=== PATIENT | female | born 1995 | race Caucasian/White ===

== ENCOUNTER 2017-04-23 17:21 | Emergency (ER) | payer SELFPAY ==
[~2017-04-23] VITALS: Ht 160 cm; Wt 98.4 kg
[2017-04-23] MEDS ORDERED: OXYcodone/APAP 10/325MG TABLET ONE (18:17)
[2017-04-23] MEDS ORDERED: ONDANSETRON ODT 4 MG PO ONE ×2 (18:30→19:30)
[2017-04-23] MEDS ORDERED: HYDROmorphone 1 MG/ML, 1ML IM ONE (18:30)
[2017-04-23] MEDS ORDERED: OXYcodone/APAP 10/325MG TABLET PO ONE (18:30)
[2017-04-23] MEDS ORDERED: ONDANSETRON ODT 4 MG ONE ×2 (18:31→19:31)
[2017-04-23] MEDS ORDERED: HYDROmorphone 1 MG/ML, 1ML ONE (18:32)
[2017-04-23] MEDS ORDERED: PROMETHAZINE 25 MG/ML, 1ML ONE (21:08)
[2017-04-23 21:13] VITALS: BP 103/60
[2017-04-23] MEDS ORDERED: PROMETHAZINE 25 MG/ML, 1ML IM ONE (21:30)
== END 2017-04-23 21:39 | disposition home or self-care (01) ==
LOC: ED 21:33
DX: S82.62XA Displaced fracture of lateral malleolus of left fibula, initial encounter for closed fracture (principal); S82.432A Displaced oblique fracture of shaft of left fibula, initial encounter for closed fracture; X50.1XXA Overexertion from prolonged static or awkward postures, initial encounter; Y93.89 Activity, other specified; Y99.8 Other external cause status; Y92.009 Unspecified place in unspecified non-institutional (private) residence as the place of occurrence of the external cause
CPT/HCPCS: 29515; 96372; 99284; J1170; J2550; Q0162

== ENCOUNTER 2017-04-28 09:19 | Day surgery (SDC) | payer BC ==
[~2017-04-28] VITALS: Ht 160 cm; Wt 97.8 kg
[2017-04-28] MEDS ORDERED: FENTANYL PF 250 MCG/5ML ONE (09:56)
[2017-04-28] MEDS ORDERED: MIDAZOLAM 1 MG/ML, 2ML ONE (09:56)
[2017-04-28] MEDS ORDERED: PROPOFOL 10 MG/ML, 20ML ONE (09:57)
[2017-04-28] MEDS ORDERED: DEXAMETHASONE 4 MG/ML, 1ML ONE ×2 (09:58)
[2017-04-28] MEDS ORDERED: ONDANSETRON 2MG/ML, 2ML ONE (09:58)
[2017-04-28] MEDS ORDERED: SODIUM CHLORIDE 0.9% PF 10ML ONE (09:58)
[2017-04-28] MEDS ORDERED: CEFAZOLIN 1,000 MG ONE ×2 (09:58)
[2017-04-28] MEDS ORDERED: ROPIvacaine/PF 0.5%, 30 ML ONE ×2 (10:01)
[2017-04-28 10:02] VITALS: BP 129/83
[2017-04-28] MEDS ORDERED: OXYC5CAP2 PO (10:02)
[2017-04-28 10:25] LABS: HCG UR SG 1.023 (1.003-1.030)
[2017-04-28] MEDS ORDERED: LACTATED RINGERS 1,000 ML IV SCH (10:25)
[2017-04-28] MEDS ORDERED: HYDROmorphone 1 MG/ML, 1ML IV PRN (10:30)
[2017-04-28] MEDS ORDERED: morphine SULFATE 10 MG/ML, 1ML IV PRN (10:30)
[2017-04-28] MEDS ORDERED: OXYcodone 5 MG/5 ML ORAL.SOL UDC PO PRN (10:30)
[2017-04-28] MEDS ORDERED: PROMETHAZINE 25 MG/ML, 1ML IV PRN (10:30)
[2017-04-28] MEDS ORDERED: ACETAMINOPHEN 325 MG TABLET PO PRN (10:30)
[2017-04-28] MEDS ORDERED: FENTANYL PF 100 MCG/2ML IV PRN (10:30)
[2017-04-28] MEDS ORDERED: ONDANSETRON 2MG/ML, 2ML IVPush PRN (10:30)
[2017-04-28] MEDS ORDERED: PROMETHAZINE 12.5 MG SUPP PR PRN (10:30)
[2017-04-28] MEDS ORDERED: MEPERIDINE/PF 50 MG/ML ONE (12:12)
[2017-04-28] MEDS: MEPERIDINE/PF 25MG/0.5ML IVPush PRN ×2 (12:14→12:30)
== END 2017-04-28 14:56 ==
LOC: OUT 09:19
PROVIDERS: ATTEND Orthopaedic Surgery Foot and Ankle Surgery
DX: S82.842A Displaced bimalleolar fracture of left lower leg, initial encounter for closed fracture (principal); W19.XXXA Unspecified fall, initial encounter; Y93.89 Activity, other specified; Y92.89 Other specified places as the place of occurrence of the external cause; Y99.8 Other external cause status
CPT/HCPCS: 27814; 73600; 76000; 81025; C1713; J0690; J1100; J2175; J2250; J2405; J2704; J2795; J3010; J7120; J3490